=== PATIENT | female | born 1990 | race Caucasian/White ===

== ENCOUNTER 2025-03-04 05:36 | Emergency (ER) | payer SELFPAY ==
--- NOTE | 2025-03-04 05:41 | XRR_ITS ---
PROCEDURE INFORMATION: Exam: XR Chest Exam date and time: 03/04/2025 6:03 AM Age: 35 years old Clinical indication: Pain; Chest pressure; Additional info: Chest pain TECHNIQUE: Imaging protocol: Radiologic exam of the chest. Views: 1 view. COMPARISON: No relevant prior studies available. FINDINGS: Lungs: Unremarkable. No consolidation. Pleural spaces: Unremarkable. No pleural effusion. No pneumothorax. Heart/Mediastinum: Unremarkable. No cardiomegaly. Bones/joints: Unremarkable. XR/XR chest 1V portable [id number] IMPRESSION: No acute findings.
--- OUTSIDE RECORDS SUMMARY | 2025-03-04 05:42 | XMS_ITS | Patient Health Record ---
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 Name Role Phone Ivanna Saleh Primary Care Provider Anahy Tyler Unavailable [phone] IVANNA SALEH Unavailable Unavailable Allergies No Known Allergies Reason For Referral No Information Medications Medication SIG (Take, Route, Frequency, Duration) Notes Start Date End Date Status Natroba 0.9 % Suspension 1 application Externally daily and repeat 1 week; Duration: 30 days patient with long hair 02/17/2025 04/18/2025 Active Omeprazole 40 MG Capsule Delayed Release 1 capsule 30 minutes before morning meal Orally Once a day; Duration: 30 days 04/28/2023 Not-Taking Social History Tobacco Use: Social History Observation Description Date Details (start date - stop date) Never Smoker NA - NA Social History Depression Screening Social Info Question Answer Notes depression screening findings Findings Positive (5+ without suicidality) PHQ-9 Little interest or pleasure in doing things Not at all Feeling down, depressed, or hopeless Not at all Trouble falling or staying asleep, or sleeping t oo much More than half the days Feeling tired or having little energy More than half the days Poor appetite or overeating Several days Feeling bad about yourself, or that you are a failure, or have let yourself or your family down More than half the days Trouble concentrating on thi ngs, such as reading the newspaper or watching television Not at all Moving or speaking so slowly that other people could have noticed. Or the opposite ? being so fidgety or restless that you have been moving around a lot more than usual Not at all Thoughts that you would be b kristofer off , or of hurting yourself in some way Not at all Total Score 7 Interpretation Mild Depression Drugs/Alcohol: Social Info Question Answer Notes Alcohol Screen (Audit-C) Did you have a drink containing alcohol in the past year? Yes How often did you have a drink containing alcohol in the past year? Monthly or less (1 point) Points 1 Interpretation Negative Tobacco Use: Social Info Question Answer Notes xTobacco Use/Smoking Are you a nonsmoker Section Notes: 08/23/20 01/22/22 04/28/23 PHQ9 08/23/20 01/22/22 04/28/23 PHQ9 08/23/20 01/22/22 04/28/23 PHQ9 08/23/20 01/22/22 04/28/23 PHQ9, PHQ9 02/17/2025 08/23/20 01/22/22 04/28/23 PHQ9 08/23/20 01/22/22 04/28/23 PHQ9 08/23/20 01/22/22 04/28/23 PHQ9 08/23/20 01/22/22 08/23/20 01/22/22 08/23/20 08/23/20 08/23/20 Problems Problem Type SNOMED Code ICD Code Onset Dates Problem Status W/U Status Risk Notes Problem Obesity (464046278) Obesity (BMI 30-39.9) (E66.9) Active confirmed Problem Gastroesophageal reflux disease (016591466) GERD without esophagitis (K21.9) Active confirmed Problem Anxiety (15004953) Anxiety (F41.9) Active confirmed Vital Signs Heart Rate 74 /min 02/17/2025 Temperature 97.7 degrees Fahrenheit 02/17/2025 Respiratory Rate 20 /min 02/17/2025 Oximetry 99 % 02/17/2025 Height-cm 162.56 cm 02/17/2025 Blood pressure diastolic 78 mm Hg 02/17/2025 Weight-kg 106.6 kg 02/17/2025 Height 64 in 02/17/2025 Blood pressure systolic 110 mm Hg 02/17/2025 Weight 235 lbs 02/17/2025 BMI 40.33 kg/m2 02/17/2025 Encounters Encounter Location Date Provider Diagnosis [facility] [address] [id number] 02/17/2025 Anahy Tyler Head lice B85.0 and Depression screen Z13.31 [facility] [address] [phone] 08/16/2024 Ivanna Saleh Strep pharyngitis J02.0 Assessments Encounter Date Diagnosis (ICD Code) Assessment Notes Treatment Notes Treatment Clinical Notes Section Notes 02/17/2025 Head lice (ICD-10 - B85.0) natroba 08/16/2024 Strep pharyngitis (ICD-10 - J02.0) 02/17/2025 Depression screen (ICD-10 - Z13.31) 02/17/2025 Other Questions asked and answered; discharged to home. Plan Of Treatment No Information Insurance Providers Payer Name Payer Address Payer Phone Subscriber Number Group Number Insured Name Patient Relationship to Insured Coverage Start Date Coverage End Date Danica [address] [facility] [place], [place] [phone] [id number] Valentino Hannah Self - patient is the insured Medications Administered Medication Instructions Date of Administration Dosage Notes DEPO-Medrol 10/26/2023 40 mg [id number] 3-01 Patient tolerated well. DEPO-Medrol 02/24/2024 40 mg [id number] 3-01 Patient tolerated well.Given as one injection dexAMETHasone 01/22/2022 8 mg [id number] dexAMETHasone 10/26/2023 4 mg [facility]-[id number] 423-00 Patient tolerated well. dexAMETHasone 02/24/2024 4 mg [facility]-7457-04 23-00 Patient tolerated well.Given as one injection zzDexamethasone 08/23/2020 8 mg
[2025-03-04 05:49] VITALS: BP 161/101; PULSE 116; RESP 18; TEMP 36.7; O2SAT 95; BMI 39.4
--- NOTE | 2025-03-04 05:52 | ECG_ITS ---
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
--- NOTE | 2025-03-04 06:05 | W.ED.CHESTPA ---
HPI - Chest Pain General: Chief Complaint: Chest Pain Stated Complaint: Chest Pain Time Seen by Provider: 03/04/25 05:38 History of Present Illness: 35-year-old female with no significant medical history who presents to the emergency room with chest pain. She reports left central chest pressure. This started overnight. She is hypertensive and somewhat tachycardic on presentation. She says she feels her heart fluttering. She says she started having a bit of a sore throat a few days ago but otherwise has no sick symptoms. No cough. No lower extremity swelling. No calf pain. No abdominal pain. No nausea or vomiting. Related Data Previous Rx's ?Medication ?Instructions ?Recorded cephalexin 500 mg tablet 500 mg PO TID 7 days #21 tabs 03/04/25 Allergies Allergy/AdvReac Type Severity Reaction Status Date / Time No Known Allergies Allergy Verified 03/04/25 05:55 Review of Systems Narrative: Constitutional symptoms: Negative except as documented in HPI. Skin symptoms: Negative except as documented in HPI. Eye symptoms: Negative except as documented in HPI. ENMT symptoms: Negative except as documented in HPI. Respiratory symptoms: Negative except as documented in HPI. Cardiovascular symptoms: Negative except as documented in HPI. Gastrointestinal symptoms: Negative except as documented in HPI. Genitourinary symptoms: Negative except as documented in HPI. Musculoskeletal symptoms: Negative except as documented in HPI. Neurologic symptoms: Negative except as documented in HPI. Psychiatric symptoms: Negative except as documented in HPI. Endocrine symptoms: Negative except as documented in HPI. [facility] ED Female Reproductive History: Date of last menstrual period: 02/06/25 Physical Exam Narrative: EXAM NARRATIVE: General: Alert, no acute distress. Skin: Warm, dry. Head: Normocephalic, atraumatic. Neck: Supple, trachea midline. Eye: Extraocular movements are intact. Ears, nose, mouth and throat: mucosa moist. Pharyngeal erythema with mild exudate Cardiovascular: Regular, tachycardic, normal peripheral perfusion. Respiratory: Lungs are clear to auscultation, respirations are non-labored, breath sounds are equal, Symmetrical chest wall expansion. Gastrointestinal: Soft, Nontender, Non distended Musculoskeletal: Normal ROM, no deformity. Neurological: Alert and oriented, No focal neurological deficit observed. Psychiatric: Cooperative, appropriate mood & affect. Course Vital Signs: Vital signs: Vital Signs Temperature 98.5 F 03/04/25 06:11 Pulse Rate 87 03/04/25 07:34 Respiratory Rate 15 03/04/25 07:34 Blood Pressure 149/100 03/04/25 07:34 Pulse Oximetry 100 03/04/25 07:34 Oxygen Delivery Me thod Room Air 03/04/25 06:11 MDM - Chest Pain Medical Decision Making Differential diagnosis for patient with chest pain includes but is not limited to and based on the above HPI, review of systems and physical exam: Pneumonia. unstable angina. angina. Acute coronary syndrome / CT. Pulmonary embolism. Costochondritis / musculoskeletal. Pleurisy. Pericarditis. Esophageal spasm. Pancreatis. Cholecystitis. Orders placed to evaluate differential diagnosis based on the above differential, HPI and physical exam EKG: Time 5:52 AM. Rate 112. Sinus tachycardia, No ST-T changes, no ectopy, normal VT & QRS intervals, This was reviewed and interpreted by myself the ER physician at 5:58 AM Chest x-ray: No acute process. No infiltrate. No pneumothorax. Films were interpreted by myself the emergency room provider and pending final radiology review. Lab Review: Laboratory results were reviewed and interpreted by myself the emergency room physician. Mild leukocytosis. No anemia. No renal failure. D-dimer negative. Cardiac markers are negative. I reviewed the patient's medical record. No previous visits to this facility Reexamination: Patient remained stable. No increased work of breathing. No altered mental status. No focal motor deficits. Blood pressure and heart rate have both improved somewhat. Patient does tell me that she also has been doing a carnivore type diet. We did discuss that being in ketosis may cause the same symptoms. Assessment and plan: Noncardiac chest pain Pharyngitis - Discharged home - Discussed plan with patient. Answered any questions. - Evaluation and treatment of this problem were appropriate in the emergency setting. Lab Data 03/04/25 06:09 03/04/25 06:09 Laboratory Results WBC 16.35 10^3/uL (3.29-11.43) H 03/04/25 06:09 RBC 5.51 10^6/uL (3.85-5.65) 03/04/25 06:09 Hgb 15.40 g/dL (11.27-16.99) 03/04/25 06:09 Hct 46.2 % (36-47) 03/04/25 06:09 MCV 83.8 fl (85-98) L 03/04/25 06:09 MCH 27.9 pg (27-33) 03/04/25 06:09 MCHC 33.3 g/dL (30-55) 03/04/25 06:09 RDW 12.7 % (12.1-15.1) 03/04/25 06:09 Plt Count 250 10^3/cmm (157-399) 03/04/25 06:09 MPV 11.1 fL (7.4-10.4) H 03/04/25 06:09 Neut % (Auto) 82.4 % 03/04/25 06:09 Lymph % (Auto) 9.1 % 03/04/25 06:09 [place] % (Auto) 7.5 % 03/04/25 06:09 Eos % (Auto) 0.3 % 03/04/25 06:09 Baso % (Auto) 0.3 % 03/04/25 06:09 Neut # (Auto) 13.48 10^3/uL (1.8-7.7) H 03/04/25 06:09 Lymph # (Auto) 1.5 10^3/uL (0.8-4.8) 03/04/25 06:09 [place] # (Auto) 1.2 10^3/uL (0.2-0.9) H 03/04/25 06:09 Eos # (Auto) 0.1 10^3/uL (0.0-0.8) 03/04/25 06:09 Baso # (Auto) 0.1 10^3/uL (0.0-0.1) 03/04/25 06:09 Nucleated RBC % (auto) 0 % 03/04/25 06:09 Nucleated RBCs # 0.0 /100WBC 03/04/25 06:09 D-Dimer 0.33 ug/mLFEU (0-0.59) 03/04/25 06:09 Sodium 138 mmol/L (136-145) 03/04/25 06:09 Potassium 3.8 mmol/L (3.5-5.1) 03/04/25 06:09 Chloride 101 mmol/L (98-107) 03/04/25 06:09 Carbon Dioxide 21 mmol/L (22-29) L 03/04/25 06:09 Anion Gap 19.8 (5-19) H 03/04/25 06:09 BUN 12 mg/dL (6-20) 03/04/25 06:09 Creatinine 0.5 mg/dL (0.5-0.9) 03/04/25 06:09 GFR Calculation 142.1 mL/min (90-130) H 03/04/25 06:09 Glucose 87 mg/dL (65-115) 03/04/25 06:09 Calculated Osmolality 285 mOsm/kg (285-295) 03/04/25 06:09 Calcium 9.4 mg/dL (8.5-10.5) 03/04/25 06:09 Total Bilirubin 1.2 mg/dL (0.15-1.2) 03/04/25 06:09 AST 16 U/L (0-32) 03/04/25 06:09 ALT 12 U/L (0-33) 03/04/25 06:09 Alkaline Phosphatase 94 U/L (35-105) 03/04/25 06:09 Troponin T Baseline < 6 ng/L (0-10) 03/04/25 06:09 Total Protein 8.2 g/dL (6.6-8.7) 03/04/25 06:09 Albumin 4.7 g/dL (3.5-5.2) 03/04/25 06:09 Globulin 3.5 g/dL (1.3-4.6) 03/04/25 06:09 HCG, Qual Negative (Negative) 03/04/25 06:09 XR interpretation done by ED provider, pending radiology final review Discharge Plan Discharge Patient Disposition: Home Clinical Impression: Pharyngitis, Non-cardiac chest pain Condition: Stable Prescriptions: New cephalexin 500 mg tablet 500 mg PO TID 7 Days Qty: 21 0RF Discharge Orders: Discharge ED (Routine); Ordered 03/04/25 Ordered By: Teresa Reed Referrals: Ivanna Saleh APN [Primary Care Provider, Family Practice] Discharge Diet: Usual diet Discharge Activity: Increase activity as tolerated Patient Instructions: Pharyngitis (ED), Noncardiac Chest Pain (ED), Opioid Safety, Pain Management, Patient Portal & Albert Instructions Activity Restrictions/Additional Instructions: Thank you for choosing [facility] for your healthcare needs today. You have been screened and evaluated and felt safe for discharge. Health conditions do change or evolve sometimes and as such it is important that you follow up with your Primary Doctor to be re checked, 3-5 days is a general good time frame for follow up. You are always welcome to return to the ED for re assessment if your symptoms are worsening or you have new concerns Print Language: Sri Lankan Coding Level of Care Code ED [employer] Art Teacher for Shahla Haney
[2025-03-04 06:11] VITALS: BP 177/122; PULSE 105; RESP 16; TEMP 36.9; O2SAT 99
[2025-03-04 06:24] LABS: Hematocrit 46.2 % (36-47); Hemoglobin 15.40 g/dL (11.27-16.99); Mean Corpuscular HGB Conc 33.3 g/dL (30-55); Mean Corpuscular Hemoglobin 27.9 pg (27-33); Mean Corpuscular Volume 83.8 fl (85-98); Nucleated Red Blood Cells % 0 %; Platelet Count 250 10^3/cmm (157-399); Red Blood Count 5.51 10^6/uL (3.85-5.65); White Blood Count 16.35 10^3/uL (3.29-11.43)
[2025-03-04 06:54] LABS: Troponin(5th) Baseline < 6 ng/L (0-10)
[2025-03-04 06:56] LABS: Alanine Aminotransferase 12 U/L (0-33); Albumin Level 4.7 g/dL (3.5-5.2); Alkaline Phosphatase 94 U/L (35-105); Anion Gap 19.8 (5-19); Aspartate Amino Transferase 16 U/L (0-32); Blood Urea Nitrogen 12 mg/dL (6-20); Calcium 9.4 mg/dL (8.5-10.5); Carbon Dioxide 21 mmol/L (22-29); Chloride 101 mmol/L (98-107); Creatinine Clr Calc Pharmacy 188.3433; Globulin 3.5 g/dL (1.3-4.6); Glucose 87 mg/dL (65-115); Osmolality Calculated 285 mOsm/kg (285-295); Potassium 3.8 mmol/L (3.5-5.1); Sodium 138 mmol/L (136-145); Total Protein 8.2 g/dL (6.6-8.7)
[2025-03-04 07:17] LABS: HCG, Serum Qual Negative (Negative)
[2025-03-04 07:34] VITALS: BP 149/100; PULSE 87; RESP 15; O2SAT 100
[2025-03-04 07:46] VITALS: PULSE 87; O2SAT 100
== END 2025-03-04 07:53 | disposition home or self-care (01) ==
PROVIDERS: Emergency Provider Emergency Medicine; PCP Nurse Practitioner Family
DX: J02.9 Acute pharyngitis, unspecified (principal); R07.89 Other chest pain
CPT/HCPCS: 36415; 71045; 80053; 84484; 84703; 85025; 85378; 93005; 99285